=== PATIENT | female | born 1990 | race Caucasian/White ===

== ENCOUNTER 2016-09-29 07:27 | Day surgery (SDC) | payer OTHER ==
[2016-09-29] MEDS ORDERED: SCOPOLAMINE HYDROBROMIDE 1.5 MG PATCH TD ONE (07:30)
[2016-09-29] MEDS ORDERED: ACETAMINOPHEN 500 MG TAB PO ONE (07:30)
[2016-09-29] MEDS ORDERED: PREGABALIN 150 MG CAP PO ONE (07:30)
[2016-09-29] MEDS ORDERED: CLINDAMYCIN 900 MG/DEXTROSE 50 ML IV ONE (07:30)
[2016-09-29] MEDS ORDERED: LIDOCAINE 1% 2 ML INJ ONE (07:48)
[2016-09-29] MEDS ORDERED: fentaNYL 100 MCG/2 ML INJ ONE ×2 (08:31→12:09)
[2016-09-29] MEDS ORDERED: PROPOFOL 200 MG/20 ML VIAL ONE ×2 (08:31→08:32)
[2016-09-29] MEDS ORDERED: ROCURONIUM 50 MG/5 ML VIAL ONE (08:34)
[2016-09-29] MEDS ORDERED: LIDOCAINE 2% 100 MG/5 ML SYR ONE (08:34)
[2016-09-29] MEDS ORDERED: EPINEPHrine 30 MG/30 ML MDV ONE (08:42)
[2016-09-29] MEDS ORDERED: BUPIVACAINE/EPI 0.25% 30 ML SDV ONE (08:42)
[2016-09-29] MEDS ORDERED: MIDAZOLAM 2 MG/2 ML VIAL ONE (08:51)
[2016-09-29] MEDS ORDERED: DEXAMETHASONE 4 MG/ML VIAL ONE (10:04)
[2016-09-29] MEDS ORDERED: ONDANSETRON 4 MG/2 ML VIAL ONE (10:04)
[2016-09-29] MEDS ORDERED: HYDROmorphONE/DILAUDID 2 MG/ML INJ ONE (10:38)
[2016-09-29] MEDS ORDERED: SUGAMMADEX SODIUM 200 MG/2 ML VIAL IVP ONE (10:44)
[2016-09-29] MEDS ORDERED: HYDROmorphONE/DILAUDID 1 MG/ML SYR ONE (12:09)
[2016-09-29] MEDS ORDERED: OXYCODONE/APAP 5/325 TAB ONE (12:58)
== END 2016-09-29 14:47 | disposition home or self-care (01) ==
LOC: FSGY 07:27
PROVIDERS: ATTEND Orthopaedic Surgery Sports Medicine
PROC: 0SQ94ZZ Repair Right Hip Joint, Percutaneous Endoscopic Approach (ICD-10-PCS; principal; 2016-09-29 08:00)
DX: Q65.89 Other specified congenital deformities of hip (principal)
CPT/HCPCS: 29914; 29916; 76001; C1769; C1713; J1100; J1170; J2001; J2250; J2405; J2704; J3010